=== PATIENT | female | born 1960 ===

== ENCOUNTER → 2017-08-15 | Outpatient (CLI) | payer OTHER | LOC: BMCIMAGING 17:16 | PROVIDERS: ATTEND Family Medicine | DX: J98.4 Other disorders of lung (principal); J92.9 Pleural plaque without asbestos ==

== ENCOUNTER → 2018-02-15 | Outpatient (CLI) | payer OTHER | LOC: CIMAGING 14:06 | PROVIDERS: ATTEND Internal Medicine | DX: Z12.31 Encounter for screening mammogram for malignant neoplasm of breast (principal) ==